=== PATIENT | female | born 1995 | race Caucasian/White ===

== ENCOUNTER 2018-04-02 22:55 | Emergency (ER) | payer OTHER ==
[~2018-04-02] VITALS: Ht 170.2 cm; Wt 65.9 kg
[2018-04-02 22:58] VITALS: TEMP 98
[2018-04-03 00:20] VITALS: BP 113/73; PULSE 80
== END 2018-04-03 00:20 | disposition home or self-care (01) ==
LOC: COL.ER 22:55
DX: J95.830 Postprocedural hemorrhage of a respiratory system organ or structure following a respiratory system procedure (principal)